=== PATIENT | male | born 1995 | race Caucasian/White ===

== ENCOUNTER 2017-03-17 12:31 | Emergency (ER) | payer OTHER ==
[2017-03-17 13:35] LABS: MEAN CORPUSCULAR HGB CONC 36.1 g/dl (32.0-36.5); RED CELL DISTRIBUTION WIDTH 12.3 % (11.5-14.5); WHITE BLOOD COUNT 8.6 K/mm3 (4.0-10.0)
[2017-03-17 14:02] LABS: ALBUMIN 4.3 GM/DL (3.2-5.2); ALBUMIN/GLOBULIN RATIO 1.26 (1.00-1.93); ALKALINE PHOSPHATASE 77 U/L (45-117); ALT/SGPT 18 U/L (12-78); ANION GAP 7 MEQ/L (8-16); AST/SGOT 20 U/L (15-37); BILIRUBIN,DIRECT 0.1 MG/DL (0.0-0.2); BILIRUBIN,TOTAL 0.7 MG/DL (0.2-1.0); BLOOD UREA NITROGEN 15 MG/DL (7-18); CARBON DIOXIDE LEVEL 29 MEQ/L (21-32); CHLORIDE LEVEL 104 MEQ/L (98-107); CREATININE FOR GFR 0.95 MG/DL (0.70-1.30); GLOMERULAR FILTRATION RATE > 60.0 (>60); GLUCOSE, FASTING 85 MG/DL (70-105); SODIUM LEVEL 140 MEQ/L (136-145); TOTAL PROTEIN 7.7 GM/DL (6.4-8.2)
[2017-03-17 14:05] LABS: METHADONE URINE NEGATIVE (NEGATIVE)
[2017-03-17 16:07] VITALS: BP 126/68
== END 2017-03-17 16:08 | disposition home or self-care (01) ==
LOC: EDBD 12:31 → M ED 12:31
DX: F32.9 Major depressive disorder, single episode, unspecified (principal); H91.91 Unspecified hearing loss, right ear
CPT/HCPCS: 36415; 80048; 80076; 80307; 84443; 85027; 99284; G0480

== ENCOUNTER 2017-04-12 01:25 | Inpatient (IN) | payer OTHER ==
[~2017-04-12] VITALS: Ht 190.5 cm; Wt 78.9 kg
[2017-04-12 03:31] LABS: MEAN CORPUSCULAR HEMOGLOBIN 31.9 pg (27.0-33.0); MEAN CORPUSCULAR HGB CONC 36.5 g/dl (32.0-36.5); MEAN CORPUSCULAR VOLUME 87.4 fl (80.0-96.0); RED CELL DISTRIBUTION WIDTH 12.1 % (11.5-14.5); WHITE BLOOD COUNT 8.7 K/mm3 (4.0-10.0)
[2017-04-12 03:51] LABS: METHADONE URINE NEGATIVE (NEGATIVE)
[2017-04-12 03:59] LABS: ALBUMIN 4.7 GM/DL (3.2-5.2); ALBUMIN/GLOBULIN RATIO 1.24 (1.00-1.93); ALKALINE PHOSPHATASE 83 U/L (45-117); ALT/SGPT 20 U/L (12-78); ANION GAP 7 MEQ/L (8-16); AST/SGOT 9 U/L (15-37); BILIRUBIN,DIRECT 0.2 MG/DL (0.0-0.2); BILIRUBIN,TOTAL 0.6 MG/DL (0.2-1.0); BLOOD UREA NITROGEN 11 MG/DL (7-18); CALCIUM LEVEL 8.9 MG/DL (8.5-10.1); CARBON DIOXIDE LEVEL 29 MEQ/L (21-32); CHLORIDE LEVEL 105 MEQ/L (98-107); CREATININE FOR GFR 0.99 MG/DL (0.70-1.30); GLUCOSE, FASTING 83 MG/DL (70-105); POTASSIUM SERUM 4.7 MEQ/L (3.5-5.1); SODIUM LEVEL 141 MEQ/L (136-145); TOTAL PROTEIN 8.5 GM/DL (6.4-8.2)
[2017-04-12] MEDS ORDERED: MOM 30ML SUSPENSION UDC PO PRN (04:30)
[2017-04-12] MEDS ORDERED: ACETAMINOPHEN TAB 650MG DOSE (2X325MG) PO PRN (04:30)
[2017-04-12] MEDS ORDERED: MAALOX 30 ML SUSP *UDC PO PRN (04:30)
[2017-04-12 05:18] VITALS: BP 117/70
[2017-04-12 06:59] VITALS: BP 117/70
--- NOTE | 2017-04-12 10:05 | MHHPEPDOC ---
[facility] History & Physical History and Physical DATE OF ADMISSION: Apr 12, 2017 at 04:21 LEGAL STATUS AT ADMISSION: . CHIEF COMPLAINT: . HISTORY OF THE PRESENT ILLNESS: Patient is a 21-year-old male, single, domiciled with mother, siblings (16, 14, 13yo), step father in [place], unemployed [employer] in past, finished HS, PPH anger issues, no previous SA, no previous psychiatric admission, PMH not significant, BIB [facility]olo for arguments with mother, for suicidal thoughts with plan to slit wrist. ON evaluation, arguments with mother, for everything, multiple times a day, loud , but never been physical fight, mom called bartolo 3-4, pt not sure why she called in past but this time he had suicidal thoughts, also gets in arguments with step father who is currently not in country. Pt reported 'Too frustrated & nothing else to say & said about suicide but no intent to kill self', recently talking about suicide & trying to use it to stop the argument, scaring technique but not helping, not able to identify anything which will stop him from killing himself or anything positive positive in his life, mood- irritable, less happy, feeling overwhelmed, SLeep problems- initial insomnia, always had problems with sleep, energy problems, denies guilty feeling , denies sexual problems better mood at times but never been manic symptoms ever in his life. He also denies any OCD or PTSD symptoms. He denies any psychotic symptoms including hallucinations or paranoid ideations. PAST PSYCHIATRIC HISTORY: Prior Psychiatric Disorder: HS- anger issues, eval but no meds or therapy Outpatient Treatment: None reported. Suicidal/Self injurious:. None reported. Psychotropic Medication History: None reported. ALLERGIES: NKDA FAMILY PSYCHIATRIC HISTORY: Brother- anger issues, SOCIAL HISTORY: 21-year-old male, single, domiciled with mother, unemployed, used to work at [employer], finished high school and went to college for a short time before dropping out SUBSTANCE ABUSE HISTORY: None reported. PAST MEDICAL/SURGICAL HISTORY: 1.. None reported. MENTAL STATUS EXAMINATION: 21yo male sitting in the chair, looks appropriate for the stated age, fair hygiene and grooming, normal psychomotor activities, no abnormal movements, cooperative with fair eye contact, speech is normal in rate, rhythm, amount and prosody, mood is 'sad & nervous', affect constricted and mood congruent, thought process is logical and goal directed, flickering suicidal ideations and denies homicidal ideations, denies hallucinations, no delusions elicited, aaox3 , fair immediate, short term and longterm memory, limited insight, judgement and impulse control DIAGNOSES: 1. Mood disorder, unspecified, rule out major depression. 2.. Rule out impulse control disorder. 3., Rule out adjustment disorder with depressed mood. PROBLEM LIST: 1. Depression, irritability. 2., Suicidal ideations. 3., Arguments with mother. INITIAL TREATMENT PLAN: 1. Patient was admitted on a 2. Complete history was obtained. 3. With patients permission, family will be contacted and database will be expanded. 4. Patients medication regimen will be reviewed and changed accordingly. 5. Patient will be provided with protected environment. 6. Patient will be treated with individual, group, and milieu therapies. 7. Patient will receive supportive psych-education. 8. Discharge planning will commence immediately. 9. Outpatient follow-up treatment will be strongly recommended. 10. The initial treatment plan will focus initially on: * Depression. * Risk for suicide. ESTIMATED LENGTH OF STAY: 5-7 DAYS. TIME SPENT COUNSELING AND COORDINATING INITIAL CARE: 45 minutes. Laboratory Data [facility] Labs Laboratory Tests 2 04/12/17 03:09: Anion Gap 7L, Calcium Level 8.9, Aspartate Amino Transf (AST/SGOT) 9L, Alanine Aminotransferase (ALT/SGPT) 20, Alkaline Phosphatase 83, Total Bilirubin 0.6, Direct Bilirubin 0.2, Total Protein 8.5H, Albumin 4.7, Albumin/Globulin Ratio 1.24, Thyroid Stimulating Hormone (TSH) 2.350, Salicylates Level < 1.7L, Urine Amphetamines Screen NEGATIVE, Urine Benzodiazepines Screen NEGATIVE, Urine Opiates Screen NEGATIVE, Urine Methadone Screen NEGATIVE, Acetaminophen Level < 2.0L, Urine Barbiturates Screen NEGATIVE, Urine Phencyclidine Screen NEGATIVE, Urine Cocaine Metabolite Screen NEGATIVE, Urine Cannabinoids Screen NEGATIVE, Ethyl Alcohol Level < 0.003 CBC/BMP Laboratory Tests 04/12/17 03:09 Red Blood Count 5.70, Mean Corpuscular Volume 87.4, Mean Corpuscular Hemoglobin 31.9, Mean Corpuscular Hemoglobin Concent 36.5, Red Cell Distribution Width 12.1 Medications No Active Prescriptions or Reported Meds Allergies Coded Allergies: No Known Drug Allergy (Verified Allergy, Unknown, 03/17/17) LAISHA MUNIZ MD Apr 12, 2017 10:05
[2017-04-12] MEDS: FLUoxetine 10 MG CAP PO SCH (10:13)
[2017-04-12 18:00] VITALS: BP 109/60
[2017-04-13 06:28] VITALS: BP 96/55
[2017-04-13] MEDS: FLUoxetine 10 MG CAP PO SCH (09:02)
--- NOTE | 2017-04-13 15:45 | MHIPNPDOC ---
[facility] Progress Note Progress Note DATE OF SERVICE: 04/13/17 HISTORY: Patient is a 21-year-old male, single, domiciled with mother, siblings (16, 14, 13yo), step father in [place], unemployed [employer] in past, finished HS, PPH anger issues, no previous SA, no previous psychiatric admission, PMH not significant, BIB bartolo for arguments with mother, for suicidal thoughts with plan to slit wrist. Patient was seen and evaluated. He reported that he was able to sleep better yesterday without any medications for sleep. He also reported that he has some talks about how he can address the problems differently for the future. He reported that he would probably think about moving to [place] with his friends and try to find a job over there as a long-term plan while for the short-term. He would like to think about getting a job and may have to live with mom for some time, continued to report some fluctuating ideas of suicide but denies any plans or intention to commit suicide while in the inpatient unit. He remains to himself and goes to [facility] the group therapies, but not an active participant worked there reported taking Prozac and denies any side effects. Appetite is fine. VITAL SIGNS: See below. CURRENT MEDICATIONS: See below. 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 Mood disorder, unspecified, rule out major depression. 2.. Rule out impulse control disorder. 3., Rule out adjustment disorder with depressed mood. ASSESSMENT: Patient continued to be depressed and overwhelmed with stressors MANAGEMENT PLAN: Continue current treatment and CBT for depression. TIME SPENT: 15 minutes. Vital Signs Vital Signs Date Time Temp Pulse Resp B/P (MAP) Pulse Ox O2 Delivery O2 Flow Rate FiO2 04/13/17 06:28 99.5 80 16 96/55 (69) Room Air 04/12/17 06:59 97 Current Medications Current Medications Acetaminophen (Tylenol Tab) 650 mg Q6HP PRN PO HEADACHE or DISCOMFORT; Start at 04:30; Stop 05/12/17 at 04:29 Al Hydrox/Mg Hydrox/Simethicone (Mylanta) 30 ml Q4HP PRN PO HEARTBURN/ INDIGESTION; Start 04/12/17 at 04:30; Stop 05/12/17 at 04:29 Fluoxetine HCl (PROzac) 10 mg QAM PO Last administered on 04/13/17t 09:02; Start 04/12/17 at 09:00; Stop 05/12/17 at 08:59 Home Med (Med Rec Complete!) ASDIRECTED XX ; Start 04/12/17 at 03:15; Stop at 03:18; Status DC Magnesium Hydroxide (Milk Of Magnesia) 30 ml DAILYPRN PRN PO CONSTIPATION; Start 04/12/17 at 04:30; Stop 05/12/17 at 04:29 Trazodone HCl (Desyrel) 50 mg QHSP PRN PO INSOMNIA; Start 04/12/17 at 04:30; Stop 05/12/17 at 04:29 Allergies Coded Allergies: No Known Drug Allergy (Verified Allergy, Unknown, 03/17/17) LAISHA MUNIZ MD Apr 13, 2017 15:45
[2017-04-13 18:00] VITALS: BP 130/63
[2017-04-13] MEDS: traZODone 50 MG TAB PO PRN (21:45)
[2017-04-14 06:00] VITALS: BP 100/67
--- NOTE | 2017-04-14 08:09 | HPE ---
DATE OF ADMISSION: 04/12/2017 HISTORY OF PRESENT ILLNESS: Please refer to the psychiatric history and evaluation for further details on this admission. This examination and history is intended for medical issues which may need treatment, followup or consultation on this 21-year-old male. ALLERGIES: No known drug allergies. PRIMARY CARE PROVIDER: TAN Blount, [facility]. SOCIAL HISTORY: He is single. He drinks alcohol once a month. Does not smoke cigarettes. Does not use recreational drugs. PAST MEDICAL HISTORY: Negative. PAST SURGICAL HISTORY: Circumcision. HOME MEDICATIONS: None. FAMILY HISTORY: Noncontributory. LABORATORY STUDIES: WBC 8.7, hemoglobin 8.2, hematocrit 49.8, platelets 24. Electrolytes are normal. BUN and creatinine were 11 and 0.99. Tox screen was negative. REVIEW OF SYSTEMS: 10-systems review was done and was unremarkable. PHYSICAL EXAMINATION: 21-year-old cooperative male in no acute distress. Vital signs stable. Height 78 inches, weight 78.9 kg, body mass index (BMI) 21.7. Blood pressure 130/63, pulse 74, respirations 16, temperature 98.2. The patient is alert and oriented times three. Pupils equal and reactive to light. Extraocular movements intact. Cornea and sclera clear. Conjunctiva normal. No facial asymmetry. Pharynx, tongue, and gums pink and moist. Tongue is midline. Neck is supple, without lymphadenopathy. No thyromegaly. No goiter Chest clear to auscultation, without wheeze or retraction. Heart is regular. Abdomen benign. Bowel sounds positive. /Rectal: Not done. Extremities show equal strength. Full range of motion. No cyanosis, clubbing or edema. Peripheral pulses equal and palpable bilaterally. Skin is warm and dry. IMPRESSION AND PLAN: 1. Psychiatric: Plan per psychiatry. No acute medical issues.
[2017-04-14] MEDS: FLUoxetine 10 MG CAP PO SCH (08:58)
--- NOTE | 2017-04-14 16:34 | MHIPNPDOC ---
[facility] Progress Note Progress Note DATE OF SERVICE: 04/14/17 HISTORY: Patient is a 21-year-old male, single, domiciled with mother, siblings (16, 14, 13yo), step father in [place], unemployed [employer] in past, finished HS, PPH anger issues, no previous SA, no previous psychiatric admission, PMH not significant, BIB bartolo for arguments with mother, for suicidal thoughts with plan to slit wrist. Patient was seen and evaluated. He reported that he could not sleep yesterday he went after taking medication , trazodone. He reported that he wants to talk to his mother and see how she is doing and if she is willing to take him back for a short time before he figures out his long-term plan. He reported that he would probably think about moving to [place] with his friends and try to find a job over there as a long-term plan while for the short-term, he would like to think about getting a job and may have to live with mom for some time. Discussed about his hobbies and what he enjoys, continued to report some fluctuating ideas of suicide but denies any plans or intention to commit suicide while in the inpatient unit. Reported taking Prozac and denies any side effects. Appetite is fine. VITAL SIGNS: See below. CURRENT MEDICATIONS: See below. 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 Mood disorder, unspecified, rule out major depression. 2.. Rule out impulse control disorder. 3., Rule out adjustment disorder with depressed mood. ASSESSMENT: Patient continued to be depressed and overwhelmed with stressors MANAGEMENT PLAN: Continue current treatment and CBT for depression. TIME SPENT: 15 minutes. Vital Signs Vital Signs Date Time Temp Pulse Resp B/P (MAP) Pulse Ox O2 Delivery O2 Flow Rate FiO2 04/14/17 06:00 97.9 64 19 100/67 (78) Room Air 04/12/17 06:59 97 Current Medications Current Medications Acetaminophen (Tylenol Tab) 650 mg Q6HP PRN PO HEADACHE or DISCOMFORT; Start at 04:30; Stop 05/12/17 at 04:29 Al Hydrox/Mg Hydrox/Simethicone (Mylanta) 30 ml Q4HP PRN PO HEARTBURN/ INDIGESTION; Start 04/12/17 at 04:30; Stop 05/12/17 at 04:29 Fluoxetine HCl (PROzac) 10 mg QAM PO Last administered on 04/14/17 08:58; Start 04/12/17 at 09:00; Stop 05/12/17 at 08:59 Home Med (Med Rec Complete!) ASDIRECTED XX ; Start 04/12/17 at 03:15; Stop at 03:18; Status DC Magnesium Hydroxide (Milk Of Magnesia) 30 ml DAILYPRN PRN PO CONSTIPATION; Start 04/12/17 at 04:30; Stop 05/12/17 at 04:29 Trazodone HCl (Desyrel) 50 mg QHSP PRN PO INSOMNIA Last administered on 21:45; Start 04/12/17 at 04:30; Stop 05/12/17 at 04:29 Allergies Coded Allergies: No Known Drug Allergy (Verified Allergy, Unknown, 03/17/17) LAISHA MUNIZ MD Apr 14, 2017 16:34
[2017-04-14 18:00] VITALS: BP 121/65
[2017-04-14] MEDS: traZODone 50 MG TAB PO PRN (22:29)
[2017-04-15 06:27] VITALS: BP 111/55
[2017-04-15] MEDS: FLUoxetine 10 MG CAP PO SCH (09:35)
[2017-04-15 18:00] VITALS: BP 121/63
[2017-04-15] MEDS ORDERED: traZODone 50 MG TAB PO SCH (21:00)
[2017-04-15] MEDS ORDERED: RAMELTEON 8 MG TAB (ROZEREM) PO SCH (21:00)
[2017-04-16 06:28] VITALS: BP 110/54
[2017-04-16] MEDS: SERTRALINE HCL 50 MG TAB PO SCH (08:41)
[2017-04-16] MEDS: risperiDONE 0.5 MG TAB PO SCH ×2 (12:04→21:41)
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
[2017-04-16 18:00] VITALS: BP 112/56
[2017-04-16] MEDS: QUEtiapine FUMARATE 100 MG TAB PO SCH (21:41)
[2017-04-17 06:24] VITALS: BP 109/58
[2017-04-17] MEDS: risperiDONE 0.5 MG TAB PO SCH ×2 (09:11→21:35)
[2017-04-17] MEDS: SERTRALINE HCL 50 MG TAB PO SCH (09:11)
[2017-04-17 18:00] VITALS: BP 109/57
--- NOTE | 2017-04-17 21:44 | MHIPNPDOC ---
[facility] Progress Note Progress Note DATE OF SERVICE: 04/17/17 HISTORY: Patient is a 21-year-old male, single, domiciled with mother, siblings (16, 14, 13yo), step father in [place], unemployed [employer] in past, finished HS, PPH anger issues, no previous SA, no previous psychiatric admission , PMH not significant, BIB [facility] for arguments with mother, for suicidal thoughts with plan to slit wrist. VITAL SIGNS: See below. NEW TEST RESULTS: None CURRENT MEDICATIONS: See below. MENTAL STATUS EXAMINATION: Patient is a 21-year old male, who is dressed in personal clothes, pleasant, cooperative, with good eye contact. Speech: Spontaneous and fluid Language skills are fair Thought processes including: Intact Thought content: Coherent. Abstract reasoning, and computation: Fair. Description of associations: Good Description of abnormal or psychotic thoughts: He denies A/V hallucinations, denies thought delusions, denies SI/HI Judgment: Limited Insight: Limited Orientation: Oriented 3 Recent and remote memory: Good Attention span and concentration: Good Language: Normal Fund of knowledge: Adequate Mood: Euthymic Affect: Congruent to mood DIAGNOSES: 1. Unspecified mood disorder, rule out bipolar disorder. 2. Generalized anxiety disorder. ASSESSMENT: Patient has been stable. Will contact family through [employer] because patient is stable to be discharged but need to make sure he will be O.K. and his mother will be comfortable with his discharge. MANAGEMENT PLAN: Will continue on same medications, will encourage him to attend groups. TIME SPENT: 30 MINUTES Vital Signs Vital Signs Date Time Temp Pulse Resp B/P (MAP) Pulse Ox O2 Delivery O2 Flow Rate FiO2 04/17/17 18:00 98.9 75 14 109/57 (74) 04/16/17 06:28 Room Air 04/12/17 06:59 97 Current Medications Current Medications Acetaminophen (Tylenol Tab) 650 mg Q6HP PRN PO HEADACHE or DISCOMFORT; Start at 04:30; Stop 05/12/17 at 04:29 Al Hydrox/Mg Hydrox/Simethicone (Mylanta) 30 ml Q4HP PRN PO HEARTBURN/ INDIGESTION; Start 04/12/17 at 04:30; Stop 05/12/17 at 04:29 Fluoxetine HCl (PROzac) 10 mg QAM PO Last administered on 04/15/17t 09:35; Start 04/12/17 at 09:00; Stop 04/15/17 at 10:44; Status DC Home Med (Med Rec Complete!) ASDIRECTED XX ; Start 04/12/17 at 03:15; Stop at 03:18; Status DC Magnesium Hydroxide (Milk Of Magnesia) 30 ml DAILYPRN PRN PO CONSTIPATION; Start 04/12/17 at 04:30; Stop 05/12/17 at 04:29 Quetiapine Fumarate (SEROquel) 100 mg QHS PO Last administered on 04/16/17 21: 41; Start 04/16/17 at 21:00; Stop 05/16/17 at 20:59 Ramelteon (Rozerem) 8 mg QHS PO Last administered on 04/15/17 22:32; Start 04/15 at 21:00; Stop 04/16/17 at 11:54; Status DC Risperidone (RisperDAL) 0.5 mg BID PO Last administered on 04/17/17 09:11; Start 04/16/17 at 09:00; Stop 05/16/17 at 08:59 Sertraline HCl (Zoloft) 50 mg DAILY PO Last administered on 04/17/17 09:11; Start 04/16/17 at 09:00; Stop 05/16/17 at 08:59 Trazodone HCl (Desyrel) 8 mg QHS PO ; Start 04/15/17 at 21:00; Stop 05/12/17 at 04:29; Status UNV Trazodone HCl (Desyrel) 50 mg QHSP PRN PO INSOMNIA Last administered on 22:29; Start 04/12/17 at 04:30; Stop 04/15/17 at 10:52; Status DC Allergies Coded Allergies: No Known Drug Allergy (Verified Allergy, Unknown, 03/17/17) KAHLIL BRUCE MD Apr 17, 2017 21:44
[2017-04-17] MEDS: QUEtiapine FUMARATE 100 MG TAB PO SCH (22:25)
[2017-04-18 06:00] VITALS: BP 110/71
[2017-04-18] MEDS: risperiDONE 0.5 MG TAB PO SCH (08:21)
[2017-04-18] MEDS: SERTRALINE HCL 50 MG TAB PO SCH (08:21)
[2017-04-18] MEDS ORDERED: SERT50TA PO ×2 (10:14→10:58)
[2017-04-18] MEDS ORDERED: QUET1TAB8 PO ×2 (10:14→10:58)
[2017-04-18] MEDS ORDERED: RISP0.5T21 PO ×2 (10:14→10:58)
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
== END 2017-04-18 11:30 | disposition home or self-care (01) | DRG 885 ==
LOC: M ED 01:25 → M ED INP 04:21 → M PSY 04:40
PROVIDERS: ADMIT Psychiatry & Neurology Psychiatry; ATTEND Psychiatry & Neurology Psychiatry
DX: F39 Unspecified mood [affective] disorder (principal); R45.851 Suicidal ideations; F41.1 Generalized anxiety disorder; F32.9 Major depressive disorder, single episode, unspecified; G47.00 Insomnia, unspecified; Z79.899 Other long term (current) drug therapy